=== PATIENT | female | born 1975 | race Caucasian/White ===

== ENCOUNTER 2017-04-25 11:46 | Emergency (ER) | payer OTHER | END 2017-04-25 12:30 | disposition left against medical advice (07) | LOC: ER 11:46 | DX: Z53.21 Procedure and treatment not carried out due to patient leaving prior to being seen by health care provider (principal) ==

== ENCOUNTER 2017-09-07 13:15 | Emergency (ER) | payer OTHER ==
--- NOTE | 2017-09-07 14:24 | RADIOLOGY REPORT (SQ) ---
EXAM DESCRIPTION: KNEE LEFT 4 VIEW COMPLETED DATE/TIME: 09/07/2017 2:15 pm REASON FOR STUDY: pain, dog ran into her COMPARISON: None. NUMBER OF VIEWS: Four views. TECHNIQUE: AP, lateral, and both oblique radiographic images acquired of the left knee. LIMITATIONS: None. FINDINGS: MINERALIZATION: Normal. BONES: No acute fracture or dislocation. No worrisome bone lesions. JOINT: No effusion. SOFT TISSUES: No soft tissue swelling. No radio-opaque foreign body. OTHER: No other significant finding. IMPRESSION: NEGATIVE STUDY OF THE LEFT KNEE. NO RADIOGRAPHIC EVIDENCE OF ACUTE INJURY. TECHNICAL DOCUMENTATION: JOB ID: [id number] [employer]- All Rights Reserved Reading location - IP/workstation name: [email or web address]
[2017-09-07] MEDS ORDERED: KETOROLAC TROMETHAMINE INJ/PF 30 MG/1 ML SDV IM ONE (14:42)
--- NOTE | 2017-09-07 14:48 | ER Document Report ---
ED Extremity Problem, Lower - General Chief Complaint: Knee Injury Stated Complaint: KNEE INJURY Time Seen by Provider: 09/07/17 14:28 Mode of Arrival: Ambulatory Information source: Patient TRAVEL OUTSIDE OF THE [place] IN LAST 30 DAYS: No - HPI Patient complains to provider of: Injury Location: Knee Occurred: This morning Where: Home Notes: Patient is here with complaints of left knee pain. She states she was standing at the door of her home when the dog attempted to run out the door and hit her in the left knee causing a sudden searing pain in the left knee. She has had the pain since that she is having difficulty ambulating secondary to pain. She denies any numbness, tingling, weakness. There was no direct trauma onto the knee. No fevers. No redness. She denies any nausea, vomiting, diarrhea. No chest pain shortness of breath. Pain is worse with movement and better with rest. She does report having occasional problems with this knee in the past. She denies any other complaints or injuries at this time. - Related Data Allergies/Adverse Reactions: Apple Juice [From Thickened Apple Juice] Allergy (Verified 06/08/14 20:45) bee stings Allergy (Uncoded 06/08/14 20:45) Past Medical History - Social History Smoking Status: Never Smoker Chew tobacco use (# tins/day): No Frequency of alcohol use: None Drug Abuse: None Family History: Reviewed & Not Pertinent, Other - Mother had cholecystectomy Patient has suicidal ideation: No Patient has homicidal ideation: No Renal/ Medical History: Denies: Hx Peritoneal Dialysis Psychiatric Medical History: Reports: Hx Bipolar Disorder, Hx Depression, Hx Schizophrenia Past Surgical History: Reports: Hx Hysterectomy - Immunizations Hx Diphtheria, Pertussis, Tetanus Vaccination: Yes Hx Pneumococcal Vaccination: 02/05/14 Review of Systems - Review of Systems -: Yes All other systems reviewed and negative Physical Exam - Vital signs Vitals: Temp Pulse Resp BP Pulse Ox 98.2 F 88 16 142/90 H 94 09/07/17 13:38 09/07/17 13:38 09/07/17 13:38 09/07/17 13:38 09/07/17 13:38 - Notes Notes: GENERAL: alert, cooperative, nontoxic, no distress. HEAD: normocephalic, atraumatic EYES: conjunctiva pink without discharge, no external redness or swelling. EARS: no external swelling, no external redness NOSE: atraumatic, no external swelling MOUTH/THROAT: mucous membranes moist and pink NECK: soft, supple, full range of motion, no meningismus. CHEST: no distress, lungs clear and equal throughout. No wheezing, rales, rhonchi. CARDIAC: regular rate and rhythm, no murmur, normal capillary refill, normal pulses. BACK: full range of motion, no CVA tenderness. EXTREMITIES: full range of motion of all extremities. No redness, no swelling. Tenderness to palpation lateral aspect of the left knee. No obvious ligament instability. Anterior posterior drawer are unremarkable. Normal pulse and sensation distally. Compartments are soft. Hip and ankle joint are unremarkable. NEURO: alert and oriented 3, no focal deficits, full range of motion of all extremities. PYSCH: appropriate mood, affect. Patient is cooperative. SKIN: pink, warm, dry, no rash. Course - Re-evaluation Re-evalutation: 09/07/17 14:45 Patient is nontoxic-appearing with stable vitals. She is here with complaints of left lateral knee pain. She was staying in her door when her dog attempted to run out the door and hit her in the left knee causing pain. She has tenderness lateral aspect. There is no redness or swelling. No ligament instability. Normal pulse and sensation distally. There is no signs of infection. X-ray shows no acute fracture. Patient will be given a shot of Toradol and have an Antonio wrap applied and be supplied with crutches. She will be discharged home with a prescription for Voltaren. She is instructed to rest , ice, elevate. Follow-up with orthopedics or her primary care doctor if not better in 1 week, sooner for worsening pain, fever, redness, numbness, tingling , weakness, any further concerns. The patient is noted to have elevated blood pressure during today's emergency department visit. The patient was informed of this finding. The patient was instructed that this may be related to pre-hypertension and requires further evaluation with a primary care provider. The patient has no hypertensive symptoms at this time. The patient's emergency department workup and current diagnosis were explained to the patient and or family. Follow-up instructions were provided. Medications if prescribed were discussed. Instructions for when to return to the emergency department including specific worrisome symptoms were discussed with the patient and/or family. - Vital Signs Vital signs: Temp Pulse Resp BP Pulse Ox 98.2 F 88 16 142/90 H 94 09/07/17 13:38 09/07/17 13:38 09/07/17 13:38 09/07/17 13:38 09/07/17 13:38 - Diagnostic Test Radiology reviewed: Image reviewed, Reports reviewed - Left knee negative Procedures - Immobilization left knee Pre-Proc Neuro Vasc Exam: Normal Immobilizer type: Antonio wrap, Crutches Performed by: PCT Post-Proc Neuro Vasc Exam: Normal Alignment checked and good: Yes Discharge - Discharge Clinical Impression: Left knee sprain Qualifiers: Encounter type: initial encounter Involved ligament of knee: unspecified ligament Qualified Code(s): S83.92XA - Sprain of unspecified site of left knee, initial encounter Condition: Stable Disposition: HOME, SELF-CARE Instructions: Use of Crutches ([facility]), Ice & Elevation ([facility]), Sprained Knee ([facility]) Additional Instructions: Take medications as prescribed. You may also take thousand milligrams of Tylenol every 6 hours as needed for pain. Rest, ice, elevate. Follow-up with orthopedics or your primary care doctor in 1 week if not better. Follow-up sooner for worsening pain, fever, redness, numbness, tingling, weakness, any further concerns. Your blood pressure was elevated during today's visit. Have this rechecked with your doctor. Prescriptions: Diclofenac Sodium [Voltaren 50 Mg Tablet.] 50 mg PO BID #20 tablet.dr Forms: Elevated Blood Pressure, Smoking Cessation Education Referrals: KEAGAN MARIA MD [ACTIVE STAFF] - Follow up as needed [facility] [Provider Group] - Follow up as needed
[2017-09-07 15:36] VITALS: BP 140/88
== END 2017-09-07 15:36 | disposition home or self-care (01) ==
LOC: ER 13:15
DX: S83.92XA Sprain of unspecified site of left knee, initial encounter (principal); R03.0 Elevated blood-pressure reading, without diagnosis of hypertension; W54.1XXA Struck by dog, initial encounter; Y92.009 Unspecified place in unspecified non-institutional (private) residence as the place of occurrence of the external cause; Z91.030 Bee allergy status; Z90.710 Acquired absence of both cervix and uterus
CPT/HCPCS: 99283; 96372; 73564; J1885

== ENCOUNTER 2018-10-30 16:35 | Emergency (ER) | payer OTHER ==
[2018-10-30 16:58] VITALS: BP 169/104
[2018-10-30] MEDS ORDERED: IBUPROFEN 800 MG TABLET PO ONE (17:15)
[2018-10-30] MEDS ORDERED: METHOCARBAMOL 500 MG TABLET PO ONE (17:15)
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
== END 2018-10-30 17:58 | disposition home or self-care (01) ==
LOC: ER 16:35
DX: S16.1XXA Strain of muscle, fascia and tendon at neck level, initial encounter (principal); S90.31XA Contusion of right foot, initial encounter; S91.311A Laceration without foreign body, right foot, initial encounter; M79.671 Pain in right foot; M79.10 Myalgia, unspecified site; M25.511 Pain in right shoulder; M25.512 Pain in left shoulder; V87.7XXA Person injured in collision between other specified motor vehicles (traffic), initial encounter
CPT/HCPCS: 99283

== ENCOUNTER 2019-03-18 11:23 | Emergency (ER) | payer OTHER ==
--- NOTE | 2019-03-18 11:58 | ER Document Report ---
ED Medical Screen (RME) - General Chief Complaint: Headache Stated Complaint: HEADACHE,DIZZINESS,NAUSEA Time Seen by Provider: 03/18/19 11:49 Mode of Arrival: Ambulatory Information source: Patient TRAVEL OUTSIDE OF THE [place] IN LAST 30 DAYS: No - HPI Notes: 03/18/19 11:56 43-year-old female with a history of hypertension presents to the emergency room with worse headache of life, reports headache is occipital, reports blurred vision right greater than left, dizziness nausea that started approximately 9:00 this morning. 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 States that her father recently from a brain tumor. Patient states she does have a history of migraines and this definitely feels different than her migraines. Denies any numbness or tingling down arms or legs, denies any chest pain shortness of breath. she did take her blood pressure meds today. I have greeted and performed a rapid initial assessment of this patient. A comprehensive ED assessment and evaluation of the patient, analysis of test results and completion of the medical decision making process will be conducted by additional ED providers. PHYSICAL EXAMINATION: GENERAL: Well-appearing, well-nourished and in no acute distress. HEAD: Atraumatic, normocephalic. EYES: Pupils equal round extraocular movements intact, conjunctiva are normal. NECK: Normal range of motion LUNGS: No respiratory distress C: s1, s2 regular Musculoskeletal: Normal range of motion. Licensed Physical Therapist Assistant +2 and equal NEUROLOGICAL: Normal speech, normal gait. PSYCH: Normal mood, normal affect. SKIN: Warm, Dry, normal turgor, no rashes or lesions noted. - Related Data Allergies/Adverse Reactions: Apple Juice [From Thickened Apple Juice] Allergy (Verified 03/18/19 11:34) bee stings Allergy (Uncoded 03/18/19 11:34) Past Medical History - Social History Chew tobacco use (# tins/day): No Frequency of alcohol use: Rare Drug Abuse: None - Past Medical History Cardiac Medical History: Reports: Hx Hypertension Renal/ Medical History: Denies: Hx Peritoneal Dialysis Psychiatric Medical History: Reports: Hx Anxiety, Hx Bipolar Disorder, Hx Depression, Hx Schizophrenia Past Surgical History: Reports: Hx Cholecystectomy, Hx Hysterectomy - Immunizations Immunizations up to date: Yes Hx Diphtheria, Pertussis, Tetanus Vaccination: Yes Physical Exam - Vital signs Vitals: Temp Pulse Resp BP Pulse Ox 97.6 F 102 H 16 153/110 H 98 03/18/19 11:27 03/18/19 11:27 03/18/19 11:27 03/18/19 11:27 03/18/19 11:27 Course - Vital Signs Vital signs: Temp Pulse Resp BP Pulse Ox 97.6 F 102 H 16 153/110 H 98 03/18/19 11:34 03/18/19 11:27 03/18/19 11:34 03/18/19 11:27 03/18/19 11:34
[2019-03-18 12:17] LABS: ABSOLUTE BASOPHILS # (AUTO) 0.1 10^3/uL (0.0-0.2); ABSOLUTE EOSINOPHILS # (AUTO) 0.1 10^3/uL (0.0-0.6); ABSOLUTE LYMPHOCYTES (AUTO) 4.1 10^3/uL (0.5-4.7); ABSOLUTE MONOCYTES (AUTO) 0.6 10^3/uL (0.1-1.4); ABSOLUTE NEUT (AUTO) 5.3 10^3/uL (1.7-8.2); EOSINOPHILS % (AUTO) 0.7 % (0-6); HEMOGLOBIN 16.1 g/dL (12.0-15.5); LYMPHOCYTES % (AUTO) 40.2 % (13-45); MEAN CORPUSCULAR HEMOGLOBIN 31.5 pg (27.0-33.4); MEAN CORPUSCULAR HGB CONC 34.3 g/dL (32.0-36.0); MEAN CORPUSCULAR VOLUME 92 fl (80-97); MONOCYTES % (AUTO) 5.5 % (3-13); PLATELET COUNT 254 10^3/uL (150-450); RED BLOOD COUNT 5.12 10^6/uL (3.72-5.28); RED CELL DISTRIBUTION WIDTH 13.1 % (11.5-14.0); SEGMENTED NEUTROPHILS % (AUTO) 52.6 % (42-78); TOTAL CELLS COUNTED % (AUTO) 100 %; WHITE BLOOD COUNT 10.1 10^3/uL (4.0-10.5)
[2019-03-18 12:43] LABS: ALBUMIN 4.5 g/dL (3.5-5.0); ALKALINE PHOSPHATASE 65 U/L (38-126); ANION GAP 13 (5-19); ASPARTATE AMINO TRANSFERASE 35 U/L (14-36); BILIRUBIN,DIRECT 0.1 mg/dL (0.0-0.4); BILIRUBIN,TOTAL 0.8 mg/dL (0.2-1.3); BLOOD UREA NITROGEN 11 mg/dL (7-20); CALCIUM 10.1 mg/dL (8.4-10.2); CARBON DIOXIDE 29 mmol/L (22-30); CHLORIDE 100 mmol/L (98-107); GLUCOSE 109 mg/dL (75-110); POTASSIUM 4.1 mmol/L (3.6-5.0); TOTAL PROTEIN 7.7 g/dL (6.3-8.2)
[2019-03-18 12:57] LABS: ERYTHROCYTE SEDIMENTATION RATE 13 mm/hr (0-20)
--- NOTE | 2019-03-18 13:01 | RADIOLOGY REPORT (SQ) ---
EXAM DESCRIPTION: CT HEAD WITHOUT COMPLETED DATE/TIME: 03/18/2019 12:46 pm REASON FOR STUDY: worst VEGAS of life, occipital, fam hx of brain ca COMPARISON: None. TECHNIQUE: Axial images acquired through the brain without intravenous contrast. Images reviewed wi th bone, brain and subdural windows. Additional sagittal and coronal reconstructions were generated. Images stored on PACS. All CT scanners at this facility use dose modulation, iterative reconstruction, and/or weight based d osing when appropriate to reduce radiation dose to as low as reasonably achievable (ALARA). [facility]: Dose Right [facility]: CareDose [facility]: Dose Right [facility]: Teradose 4D [facility]: Smart OnTrack Imaging RADIATION DOSE: CT Rad equipment meets quality standard of care and radiation dose reduction techniq ues were employed. CTDIvol: 53.2 mGy. DLP: 1017 mGy-cm. mGy. LIMITATIONS: None. FINDINGS: VENTRICLES: Normal size and contour. CEREBRUM: No masses. No hemorrhage. No midline shift. No evidence for acute infarction. Normal gra y/white matter differentiation. No areas of low density in the white matter. CEREBELLUM: No masses. No hemorrhage. No alteration of density. No evidence for acute infarction. EXTRAAXIAL SPACES: No fluid collections. No masses. ORBITS AND GLOBE: No intra- or extraconal masses. Normal contour of globe without masses. CALVARIUM: No fracture. PARANASAL SINUSES: No fluid or mucosal thickening. SOFT TISSUES: No mass or hematoma. OTHER: No other significant finding. IMPRESSION: No acute intracranial pathology. No noncontrast CT findings to explain headache. EVIDENCE OF ACUTE STROKE: NO. COMMENT: Quality ID # [id number]: Final reports with documentation of one or more dose reduction techniques (e.g., Automated exposure control, adjustment of the mA and/or kV according to patient size, use of iterative reconstruction technique) TECHNICAL DOCUMENTATION: JOB ID: [id number] [employer]- All Rights Reserved Reading location - IP/workstation name: [email or web address]
--- NOTE | 2019-03-18 13:13 | RADIOLOGY REPORT (SQ) ---
EXAM DESCRIPTION: CHEST 2 VIEWS COMPLETED DATE/TIME: 03/18/2019 1:01 pm REASON FOR STUDY: tachycardia, VEGAS, HTN COMPARISON: 06/10/2014. EXAM PARAMETERS: NUMBER OF VIEWS: two views TECHNIQUE: Digital Frontal and Lateral radiographic views of the chest acquired. RADIATION DOSE: NA LIMITATIONS: none FINDINGS: LUNGS AND PLEURA: No opacities, masses or pneumothorax. No pleural effusion. MEDIASTINUM AND HILAR STRUCTURES: No masses or contour abnormalities. HEART AND VASCULAR STRUCTURES: Heart normal size. No evidence for failure. BONES: No acute findings. HARDWARE: None in the chest. OTHER: No other significant finding. IMPRESSION: NO ACUTE RADIOGRAPHIC FINDING IN THE CHEST. TECHNICAL DOCUMENTATION: JOB ID: [id number] [employer]- All Rights Reserved Reading location - IP/workstation name: [email or web address]
[2019-03-18] MEDS ORDERED: PROCHLORPERAZINE EDISYLATE INJ 10 MG/2 ML VIAL IV ONE (13:23)
[2019-03-18] MEDS ORDERED: DIPHENHYDRAMINE HCL 50 MG/ML VIAL IV ONE (13:23)
[2019-03-18] MEDS ORDERED: NORMAL SALINE 1000 ML 1,000 ML IV ONE (13:23)
--- NOTE | 2019-03-18 14:11 | ER Document Report ---
Entered by RAYMOND COCHRAN SCRIBE 03/18/19 1321 Acting as scribe for:BOB ALBERTO MD ED Headache - General Chief Complaint: Headache Stated Complaint: HEADACHE,DIZZINESS,NAUSEA Time Seen by Provider: 03/18/19 11:49 Primary Care Provider: KANDACE YEH MD [Primary Care Provider] - Follow up as needed Mode of Arrival: Ambulatory Information source: Patient, [facility] Records Notes: This 43 year old female patient presents to the ED today with complaints of a headache for the past x1 week. Patient describes the pain as "a lot of pressure at the back of my skull, above the neck". Patient reports vomiting when she moves too fast and dizziness. Patient denies fevers. TRAVEL OUTSIDE OF THE [place] IN LAST 30 DAYS: No - Related Data Allergies/Adverse Reactions: Apple Juice [From Thickened Apple Juice] Allergy (Verified 03/18/19 11:34) bee stings Allergy (Uncoded 03/18/19 11:34) Past Medical History - General Information source: Patient, [facility] Records - Social History Smoking Status: Never Smoker Cigarette use (# per day): No Chew tobacco use (# tins/day): No Frequency of alcohol use: Rare Drug Abuse: None Family History: Reviewed & Not Pertinent, Other - Mother had cholecystectomy Patient has suicidal ideation: No Patient has homicidal ideation: No - Past Medical History Cardiac Medical History: Reports: Hx Hypertension Psychiatric Medical History: Reports: Hx Anxiety, Hx Bipolar Disorder, Hx Depression Past Surgical History: Reports: Hx Cholecystectomy, Hx Hysterectomy - Immunizations Immunizations up to date: Yes Hx Diphtheria, Pertussis, Tetanus Vaccination: Yes Hx Pneumococcal Vaccination: 02/05/14 Review of Systems - Review of Systems Constitutional: See HPI. denies: Fever EENT: No symptoms reported Cardiovascular: See HPI, Dizziness Respiratory: No symptoms reported Gastrointestinal: See HPI, Vomiting Genitourinary: No symptoms reported Female Genitourinary: No symptoms reported Musculoskeletal: No symptoms reported Skin: No symptoms reported Hematologic/Lymphatic: No symptoms reported Neurological/Psychological: See HPI, Headaches -: Yes All other systems reviewed and negative Physical Exam - Vital signs Vitals: Temp Pulse Resp BP Pulse Ox 97.6 F 102 H 16 153/110 H 98 03/18/19 11:27 03/18/19 11:27 03/18/19 11:27 03/18/19 11:27 03/18/19 11:27 Interpretation: Hypertensive - General General appearance: Appears well, Alert - HEENT Head: Atraumatic, Tenderness - tenderness with palpation near base of skull, patient reports that headache worsens and she experiences dizziness with palpation Eyes: Normal Pupils: PERRL Neck: Other - posterior cervical tenderness with palpation - Respiratory Respiratory status: No respiratory distress Chest status: Nontender Breath sounds: Normal Chest palpation: Normal - Cardiovascular Rhythm: Regular Heart sounds: Normal auscultation Murmur: No - Abdominal Inspection: Normal Distension: No distension Bowel sounds: Normal Tenderness: Nontender Organomegaly: No organomegaly - Back Back: Normal, Nontender - Extremities General upper extremity: Normal inspection General lower extremity: Normal inspection - Neurological Neuro grossly intact: Yes - Psychological Associated symptoms: Normal affect, Normal mood - Skin Skin Temperature: Warm Skin Moisture: Dry Skin Color: Normal Course - Re-evaluation Re-evalutation: 03/18/19 14:57 Headache is gone, patient feels much better. States she still does have a little dizziness. I had the patient sit up and look up and down the back and forth rapidly and she states that did cause a little dizziness and she did seem to have a little nystagmus with it. I suspect she has a muscle tension headache and has been having this, and has a little vertigo at this time also. She did respond quite well to IV Benadryl and Compazine, so I will send her home with a prescription for Compazine to take with [id number] Benadryl when she gets another of these headaches. We will also give prescription for meclizine to take for now for the vertigo type symptoms. - Vital Signs Vital signs: Temp Pulse Resp BP Pulse Ox 98.1 F 92 16 166/99 H 98 03/18/19 13:12 03/18/19 13:12 03/18/19 13:12 03/18/19 13:12 03/18/19 13:12 - Laboratory Result Diagrams: 03/18/19 12:05 03/18/19 12:05 Laboratory results interpreted by me: 03/18/19 12:05 Hgb 16.1 H Discharge - Discharge Clinical Impression: Vertigo Tension-type headache Qualifiers: Headache chronicity pattern: acute headache Intractability: not intractable Qualified Code(s): G44.209 - Tension-type headache, unspecified, not intractable Condition: Stable Disposition: HOME, SELF-CARE Additional Instructions: Tension Headache: Your problem has been diagnosed as muscle tension headache. This very common type of headache occurs because of tightness in the muscles of the head and neck. The cause may be neck or jaw joint problems, but most commonly the cause is emotional stress. The headache may last hours or days. The treatment of uncomplicated tension headaches is rest and pain medication. Often, the newer antiinflammatory pain medications are prescribed, as these also decrease the irritability of the painful tissues. Muscle relaxer s, cold packs, or warm packs are sometimes helpful. Anti-anxiety medication or narcotics are sometimes needed temporarily, but are best avoided in the long run. Your doctor has evaluated your headache problem, and finds no evidence of a serious health problem as a cause for the headache. If your headache becomes more severe, or if new symptoms develop (such as fever, stiff neck, vomiting, or decreasing alertness) you should be re-examined by the physician. Vertigo: You have experienced an episode of vertigo -- a whirling dizziness which may be accompanied by nausea and vomiting or staggering. Vertigo is often caused by an irritation of the inner ear, in which case it is called labyrinthitis. It can also be a symptom of a degenerating inner ear, nerve damage, or brain injury. Your physician has evaluated you to determine whether any further testing is necessary. Vertigo is often treated with dramamine or meclizine. These medications are helpful, but stronger medication may be needed if you are vomiting. Rest in bed. You should not drive or operate machinery until completely better. It may take one to three weeks for recovery. If there are new symptoms, such as decreased hearing or vision, severe headache, weakness or faintness, or confusion, call the physician. Take the meclizine for dizziness as needed. Take the Compazine with one Benadryl for tension type headaches as needed. If you have a headache severe enough to take medication, then find a cool quiet dark space to lay down and go to sleep and after taking medication. Follow-up with your primary care provider if not improving. RETURN TO THE EMERGENCY ROOM IF ANY NEW OR WORSENING SYMPTOMS. Prescriptions: Meclizine HCl [Antivert 25 mg Tablet] 25 mg PO TID PRN #30 tablet PRN Reason: Prochlorperazine Maleate [Compazine 10 mg Tablet] 10 mg PO ASDIR PRN #12 tablet PRN Reason: For Headache Forms: Return to Work Referrals: KANDACE YEH MD [Primary Care Provider] - Follow up as needed Scribe Attestation: 03/18/19 14:58 I personally performed the services described in the documentation, reviewed and edited the documentation which was dictated to the scribe in my presence, and it accurately records my words and actions. I personally performed the services described in the documentation, reviewed and edited the documentation which was dictated to the scribe in my presence, and it accurately records my words and actions.
[2019-03-18 15:27] VITALS: BP 155/65
--- NOTE | 2019-03-18 16:55 | EKG REPORT ---
SEVERITY:- NORMAL ECG - SINUS RHYTHM : Confirmed by: Elmer Santo MD 18-Mar-2019 16:55:13
== END 2019-03-18 15:27 | disposition home or self-care (01) ==
LOC: ER 11:23
DX: G44.209 Tension-type headache, unspecified, not intractable (principal); R42 Dizziness and giddiness; R11.2 Nausea with vomiting, unspecified; I10 Essential (primary) hypertension; Z91.018 Allergy to other foods; Z91.030 Bee allergy status
CPT/HCPCS: 93005; 99284; 96361; 96374; 96375; 36415; 85025; 85652; 80053; 71046; 70450; 93010; J1200; J0780; J7030